=== PATIENT | male | born 1970 | race Caucasian/White ===

== ENCOUNTER 2019-10-04 10:36 | Inpatient (IN) | payer OTHER ==
[~2019-10-04] VITALS: Ht 177.8 cm; Wt 93.9 kg
[2019-10-04] MEDS ORDERED: KETOROLAC 30 MG/ML VIAL. IM ONE (11:30)
[2019-10-04] MEDS ORDERED: ORPHENADRINE CITRATE 60 MG/2 ML VIAL. IM ONE (11:30)
--- NOTE | 2019-10-04 11:59 | RAD ---
CT LUMBAR SPINE WO CONTRAST History:Reason: low back pain for over a month with R sciatica / Spl. Instructions: / History: Technique: Noncontrast CT was performed of the lumbar spine. Multiplanar reconstructions were performed. Exposure: One or more of the following individualized dose reduction techniques were utilized for this examination: 1. Automated exposure control 2. Adjustment of the mA and/or kV according to patient size 3. Use of iterative reconstruction technique. Comparison: None Findings: Grade 1 anterolisthesis L5 on S1 due to chronic bilateral L5 spondylolysis. Normal vertebral body height. No fracture. L4 superior endplate Schmorl's node. T12-L1: No canal or neuroforaminal narrowing. L1-L2: Small disc bulge. No canal or neuroforaminal narrowing. L2-L3 Broad-based disc bulge. Mild subarticular recess narrowing. Mild facet arthropathy. No canal narrowing. No neuroforaminal narrowing. L3-L4: Small disc bulge. Moderate facet arthropathy. Mild subarticular recess narrowing. No canal narrowing. Mild right and moderate left neuroforaminal narrowing. L4-L5: Disc bulge. Moderate facet arthropathy. No canal narrowing. Mild bilateral neuroforaminal narrowing. L5-S1: Anterolisthesis. Disc uncovering. Disc bulge. Abutment of the bilateral descending S1 nerve roots within the subarticular recess. No canal narrowing. Severe right neuroforaminal narrowing with impingement of the exiting right L5 nerve root. Mild left neuroforaminal narrowing. Left renal cyst. Impression: 1. Grade 1 anterolisthesis L5 on S1 due to chronic bilateral L5 spondylolysis. 2. Severe right L5-S1 neuroforaminal narrowing with impingement of the exiting L5 nerve root. Correlate for radiculopathy. 3. L5-S1 subarticular recess narrowing with abutment of the descending S1 nerve roots. Correlate for radiculopathy. 4. Additional lumbar spondylosis. Electronically signed by: Joseph Michele DO (10/04/2019 11:57 AM) [id number]
--- NOTE | 2019-10-04 12:09 | PHYS DOC ---
Past Medical History Past Medical History: Sciatica Past Surgical History: Other Additional Past Surgical Histo: LEFT ANKLE Smoking Status: Never Smoker Alcohol Use: Occasionally General Adult EDM: Chief Complaint: LOWER BACK PAIN OR INJURY HPI: HPI: Patient is a 49 year old male, accompanied by his , who presents to the emergency department with complaints of back pain for the last month. He states that in early August he felt his low back stiffen after lifting some heavy miles shingles. Patient denies any saddle anesthesia, or loss of bowel or bladder control. He denies any dysuria, hematuria, increased urinary frequency, abdominal pain, nausea, vomiting, or diarrhea. He reports that last week he was seen by his primary care provider who prescribed him a 9-day taper of prednisone, Flexeril, and Neurontin. He reports that his pain is increased over the last 48 hours, he is only comfortable when he is lying on his left side or he kneeling on all fours. He currently rates the pain a 5-6 out of 10 with rest, the pain increases to 8 or 9/10 with movement. He reports severe pain with weightbearing and ambulation, and states that the pain radiates down his right leg, his right leg feels a constant tingling sensation. Review of Systems: Review of Systems: Constitutional: Denies fever or chills. [] GI: Denies abdominal pain, nausea, vomiting, or diarrhea. [] : Denies dysuria. [] Musculoskeletal: See HPI Integument: Denies rash. [] Neurologic: Denies headache, see HPI Psychiatric: Denies depression or anxiety. [] Heart Score: Risk Factors: Risk Factors: DM, Current or recent (<one month) smoker, HTN, HLP, family history of CAD, obesity. Risk Scores: Score 0 - 3: 2.5% MACE over next 6 weeks - Discharge Home Score 4 - 6: 20.3% MACE over next 6 weeks - Admit for Clinical Observation Score 7 - 10: 72.7% MACE over next 6 weeks - Early Invasive Strategies Current Medications: Current Medications Medications (Trade) Dose Ordered Sig/Adan Start Time Stop Time Status Last Admin Dose Admin Ketorolac Tromethamine (Toradol 30mg Vial) 30 mg 1X ONCE 10/04/19 11:30 10/04/19 11:31 DC 10/04/19 11:45 30 MG Orphenadrine Citrate (Norflex) 60 mg 1X ONCE 10/04/19 11:30 10/04/19 11:31 DC 10/04/19 11:46 60 MG Allergies: Allergies: Allergies Coded Allergies Type Severity Reaction Last Updated Verified No Known Drug Allergies 10/04/19 No Physical Exam: PE: Constitutional: Well developed, well nourished, no acute distress, non-toxic appearance. [] HENT: Normocephalic, atraumatic, bilateral external ears normal, nose normal. [] Eyes: PERRLA, EOMI, conjunctiva normal, no discharge. [] Neck: Normal range of motion, no stridor. [] Cardiovascular:Heart rate regular rhythm Lungs & Thorax: Respirations even and unlabored, no retractions, no respiratory distress Back: No bony tenderness or deformity; right lumbar paraspinal tenderness to palpation, increased pain with right straight leg lift Skin: Warm, dry, no erythema, no rash. [] Extremities: No cyanosis, ROM intact, no edema. [] Neurologic: Alert and oriented X 3, no focal deficits noted. [] Psychologic: Affect normal, judgement normal, mood normal. [] Current Patient Data: Vital Signs: Vital Signs Date Time Temp Pulse Resp B/P (MAP) Pulse Ox O2 Delivery O2 Flow Rate FiO2 10/04/19 10:58 99.0 67 18 162/87 (112) 96 Room Air 99.0 EKG: EKG: [] Radiology/Procedures: Radiology/Procedures: PROCEDURE: CT LUMBAR SPINE WO CONTRAST CT LUMBAR SPINE WO CONTRAST History:Reason: low back pain for over a month with R sciatica / Spl. Instructions: / History: Technique: Noncontrast CT was performed of the lumbar spine. Multiplanar reconstructions were performed. Exposure: One or more of the following individualized dose reduction techniques were utilized for this examination: 1. Automated exposure control 2. Adjustment of the mA and/or kV according to patient size 3. Use of iterative reconstruction technique. Comparison: None Findings: Grade 1 anterolisthesis L5 on S1 due to chronic bilateral L5 spondylolysis. Normal vertebral body height. No fracture. L4 superior endplate Schmorl's node. T12-L1: No canal or neuroforaminal narrowing. L1-L2: Small disc bulge. No canal or neuroforaminal narrowing. L2-L3 Broad-based disc bulge. Mild subarticular recess narrowing. Mild facet arthropathy. No canal narrowing. No neuroforaminal narrowing. L3-L4: Small disc bulge. Moderate facet arthropathy. Mild subarticular recess narrowing. No canal narrowing. Mild right and moderate left neuroforaminal narrowing. L4-L5: Disc bulge. Moderate facet arthropathy. No canal narrowing. Mild bilateral neuroforaminal narrowing. L5-S1: Anterolisthesis. Disc uncovering. Disc bulge. Abutment of the bilateral descending S1 nerve roots within the subarticular recess. No canal narrowing. Severe right neuroforaminal narrowing with impingement of the exiting right L5 nerve root. Mild left neuroforaminal narrowing. Left renal cyst. Impression: 1. Grade 1 anterolisthesis L5 on S1 due to chronic bilateral L5 spondylolysis. 2. Severe right L5-S1 neuroforaminal narrowing with impingement of the exiting L5 nerve root. Correlate for radiculopathy. 3. L5-S1 subarticular recess narrowing with abutment of the descending S1 nerve roots. Correlate for radiculopathy. 4. Additional lumbar spondylosis. [] Course & Med Decision Making: Course & Med Decision Making Pertinent Labs and Imaging studies reviewed. (See chart for details) [id number] with Dr. Duran who is the admitting physician, and care was assumed following discussion of patient. Will admit for intractable back pain with compression of L5 nerve root Patient's vital signs stable. Patient remains afebrile, appears nontoxic, respirations even and unlabored. Patient will be admitted to the med/surg floor. Patient's case and plan of care also discussed with Dr. Cherry [] Anette Disclaimer: Anette Disclaimer: This electronic medical record was generated, in whole or in part, using a voice recognition dictation system. Departure Departure Impression: Primary Impression: Intractable low back pain Additional Impression: Lumbar nerve root impingement Disposition: ADMITTED INPATIENT Admitting Physician: MOR Akins) Condition: STABLE Referrals: NO PCP (PCP) Justicifation of Admission Dx: Justifications for Admission: Justification of Admission Dx: Yes Comments: intractable back pain ROSSANA BURGESS CASH SURRENDER CALCULATOR Oct 04, 2019 12:09
[2019-10-04] MEDS: DEXAMETHASONE SOD PHOS 4 MG/ML VIAL IVP SCH ×2 (12:30→17:31)
--- NOTE | 2019-10-04 12:36 | PDOC1 ---
History and Physical Date of Admission Date of Admission DATE: 10/04/19 TIME: 12:14 Identification/Chief Complaint Chief Complaint Intractable back pain, unable to walk Source Source: Patient History of Present Illness History of Present Illness Mr Kothari is a 49yo M w/ PMHx HTN who presents to ED today complaining of intractable back pain. Pain is 910. In his lower back, radiates down into his right leg with associated numbness and tingling. He is unable to bear weight on his right leg and his brought him to ED today because he is only able to crawl on all fours. 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 Initially went to chiropractor and had adjustments and spinal x-rays that were reviewed by the chiropractor is normal. He subsequently 2 weeks ago had a referral to a second chiropractor who is also a physical therapist in [place] and had traction and inversion table and felt minimal improvement so went to see his nurse practitioner and was given a 9-day prednisone taper along with Flexeril 10 mg 3 times daily as needed as well as Neurontin 300 mg 3 times daily, he has also been taking Motrin. And did feel some improvement with that and on the third day he went on a trip to [place] and did a little bit more heavy lifting and the pain recurred and has been progressively worse over the past 6 days until he was unable to walk today. On further review of systems he did have gastritis on EGD in 2019 and hypertension was on antihypertensives he has since lost over 25 pounds and is off antihypertensives and has been off of proton pump inhibitors and has been taking minimal Motrin. He does now have some epigastric pain. Labs pending. CT lumbar spine ordered and found with grade 1 anterior listhesis L5 on S1, severe right L5-S1 neuroforaminal narrowing with impingement of the exiting L5 nerve root, L5-S1 subarticular recess narrowing with abutment of the descending S1 nerve roots, lumbar spondylolysis. He was given Norflex and Toradol with some improvement, his best improvement is laying on his left side with his right leg in front of his left. He has no urinary or fecal incontinence. Called for admission for further care. Past Medical History Cardiovascular: HTN Past Surgical History Past Surgical History: Other (Left ankle ORIF with hardware in place) Family History Family History: Hypertension Social History Smoke: No ALCOHOL: rare Drugs: None Current Medications Current Medications Current Medications Orphenadrine Citrate (Norflex) 60 mg 1X ONCE IM Last administered on 10/04/19at 11:46; Start 10/04/19 at 11:30; Stop 10/04/19 at 11:31; Status DC Ketorolac Tromethamine (Toradol 30mg Vial) 30 mg 1X ONCE IM Last administered on 10/04/19at 11:45; Start 10/04/19 at 11:30; Stop 10/04/19 at 11:31; Status DC Allergies Allergies: Coded Allergies: No Known Drug Allergies (Unverified , 10/04/19) ROS General: YES: Fatigue, Malaise; No: Chills, Night Sweats, Appetite, Other PSYCHOLOGICAL ROS: No: Anxiety, Behavioral Disorder, Concentration difficultie, Decreased libido, Depression, Disorientation, Hallucinations, Hostility, Irritablity, Memory difficulties, Mood Swings, Obsessive thoughts, Physical abuse, Sexual abuse, Sleep disturbances, Suicidal ideation, Other Eyes: No Blurry vision, No Decreased vision, No Double vision, No Dry eyes, No Excessive tearing, No Eye Pain, No Itchy Eyes, No Loss of vision, No Photophobia, No Scotomata, No Uses contacts, No Uses glasses, No Other HEENT: No: Heacaches, Visual Changes, Hearing change, Nasal congestion, Nasal discharge, Oral lesions, Sinus pain, Sore Throat, Epistaxis, Sneezing, Snoring, Tinnitus, Vertigo, Vocal changes, Other ALLERGY AND IMMUNOLOGY: No: Hives, Insect Bite Sensitivity, Itchy/Watery Eyes, Nasal Congestion, Post Nasal Drip, Seasonal Allergies, Other Hematological and Lymphatic: No: Bleeding Problems, Blood Clots, Blood Transfusions, Brusing, Night Sweats, Pallor, Swollen Lymph Nodes, Other ENDOCRINE: No: Breast Changes, Galactorrhea, Hair Pattern Changes, Hot Flashes, Malaise/lethargy, Mood Swings, Palpitations, Polydipsia/polyuria, Skin Changes, Temperature Intolerance, Unexpected Weight Changes, Other Breast: No New/Changing Breast Lumps, No Nipple changes, No Nipple discharge, No Other Respiratory: No: Cough, Hemoptysis, Orthopnea, Pleuritic Pain, Shortness of breath, SOB with excertion, Sputum Changes, Stridor, Tachypnea, Wheezing, Other Cardiovascular: No Chest Pain, No Palpitations, No Orthopnea, No Paroxysmal Noc. Dyspnea, No Edema, No Lt Headedness, No Other Gastrointestinal: No Nausea, No Vomiting, No Abdominal Pain, No Diarrhea, No Constipation, No Melena, No Hematochezia, No Other Genitourinary: No Dysuria, No Frequency, No Incontinence, No Hematuria, No Retention, No Discharge, No Urgency, No Pain, No Flank Pain, No Other, No , No , No , No , No , No , No Musculoskeletal: Yes Gait Disturbance, Yes Muscle Pain, Yes Muscular Weakness; No Joint Pain, No Joint Stiffness, No Joint Swelling, No Pain In:, No Swelling In:, No Other Neurological: Yes Gait Disturbance, Yes Impaired Coord/balance, Yes Numbness/Tingling; No Behavorial Changes, No Bowel/Bladder ControlChng, No Confusion, No Dizziness, No Headaches, No Memory Loss, No Seizures, No Speech Problems, No Tremors, No Visual Changes, No Weakness, No Other Skin: No Dry Skin, No Eczema, No Hair Changes, No Lumps, No Mole Changes, No Mottling, No Nail Changes, No Pruritus, No Rash, No Skin Lesion Changes, No Other, No Acne Physical Exam General: Alert, Oriented X3, Cooperative, moderate distress HEENT: Atraumatic, PERRLA, EOMI, Mucous membr. moist/pink Lungs: Clear to auscultation, Normal air movement Heart: S1S2, RRR, no thrills, no rubs, no gallops, no murmurs Abdomen: Normal bowel sounds, Soft, No tenderness, No hepatosplenomegaly, No masses Male Genitals Exam: normal genitalia, normal prostate Extremities: No clubbing, No cyanosis, No edema, Normal pulses, Other (lower back tenderness) Skin: No rashes, No breakdown, No significant lesion Neuro: Normal speech, Strength at 5/5 X4 ext, Normal tone, Cranial nerves 3-12 NL, Reflexes 2+, Other (Decreased sensation in right leg) Psych/Mental Status: Mental status NL, Mood NL Vitals Vitals Vital Signs Date Time Temp Pulse Resp B/P (MAP) Pulse Ox O2 Delivery O2 Flow Rate FiO2 10/04/19 10:58 99.0 67 18 162/87 (112) 96 Room Air 99.0 Images Images Grade 1 anterolisthesis L5 on S1 due to chronic bilateral L5 spondylolysis. Normal vertebral body height. No fracture. L4 superior endplate Schmorl's node. T12-L1: No canal or neuroforaminal narrowing. L1-L2: Small disc bulge. No canal or neuroforaminal narrowing. L2-L3 Broad-based disc bulge. Mild subarticular recess narrowing. Mild facet arthropathy. No canal narrowing. No neuroforaminal narrowing. L3-L4: Small disc bulge. Moderate facet arthropathy. Mild subarticular recess narrowing. No canal narrowing. Mild right and moderate left neuroforaminal narrowing. L4-L5: Disc bulge. Moderate facet arthropathy. No canal narrowing. Mild bilateral neuroforaminal narrowing. L5-S1: Anterolisthesis. Disc uncovering. Disc bulge. Abutment of the bilateral descending S1 nerve roots within the subarticular recess. No canal narrowing. Severe right neuroforaminal narrowing with impingement of the exiting right L5 nerve root. Mild left neuroforaminal narrowing. Left renal cyst. Impression: 1. Grade 1 anterolisthesis L5 on S1 due to chronic bilateral L5 spondylolysis. 2. Severe right L5-S1 neuroforaminal narrowing with impingement of the exiting L5 nerve root. Correlate for radiculopathy. 3. L5-S1 subarticular recess narrowing with abutment of the descending S1 nerve roots. Correlate for radiculopathy. 4. Additional lumbar spondylosis. VTE Prophylaxis Ordered VTE Prophylaxis Devices: Yes VTE Pharmacological Prophylaxi: No Assessment/Plan Assessment/Plan A/P: Intractable back pain - admit for pain control due to lumbar radiculopathy. Bedrest for now Unable to walk - due to nerve root impingements Lumbar radiculopathy - with L5 and s1 impingements and numbness with some weakness, no loss of bowel or bladder, will consult neurosurgery and PMR. MRI indicated. Decadon, muscle relaxants HTN - after weight loss has been off meds. Will continue to monitor. Evidence shows starting antihypertensives for inpatient elevated BP is inappropriate Overweight - still working on weight loss Gastritis - will cont PPI while on steroids and NSAIDs FEN - General diet PPX - SCDs, low risk FULL CODE Dispo - inpatient Justicifation of Admission Dx: Justifications for Admission: Justification of Admission Dx: Yes MANOLO ROY MD Oct 04, 2019 12:36
[2019-10-04 13:15] VITALS: BP 137/81
[2019-10-04] MEDS ORDERED: DOCUSATE SODIUM 100 MG CAPSULE. PO PRN (13:45)
[2019-10-04] MEDS ORDERED: ONDANSETRON PF 4 MG/2 ML VIAL. IV PRN (13:45)
[2019-10-04] MEDS ORDERED: ACETAMINOPHEN 325 MG TABLET. PO PRN (13:45)
[2019-10-04] MEDS ORDERED: PANTOPRAZOLE 40 MG TABLET.DR. PO ONE (14:00)
[2019-10-04 14:01] VITALS: BP 142/93
[2019-10-04] MEDS: CYCLOBENZAPRINE 10 MG TABLET. PO PRN ×2 (14:16→21:10)
[2019-10-04] MEDS: MORPHINE SULFATE 2 MG/ML VIAL. IV PRN (14:16)
--- NOTE | 2019-10-04 14:49 | PDOC2 ---
CONSULT Date of Consult Date of Consult DATE: 10/04/19 TIME: 14:37 Reason for Consult Reason for Consult: back pain, right leg pain Identification/Chief Complaint Chief Complaint back pain and right leg pain Source Source: Patient History of Present Illness Reason for Visit: 49yo M presented to ED today with low back pain and right leg pain. The pain radiates down the posterolateral right leg to the ankle and large toe. It is up to 9/10 in severity. It is worse with movement. He is lying on his left side for improvement. This pain began about 5 weeks ago after lifting shingles. He went to chiropractor for treatment. He subsequently 2 weeks ago had a referral to a second chiropractor who is also a physical therapist and [place] and had traction and inversion table and felt minimal improvement so went to see his nurse practitioner and was given a 9-day prednisone taper along with Flexeril 10 mg 3 times daily as needed as well as Neurontin 300 mg 3 times daily, he has also been taking Motrin. There was initially some improvement but pain worsened after a recent trip to [place]. He was unable to bear weight today from pain and was brought to the ED by his . He denies obvious discrete focal weakness or bowel/bladder changes. Past Medical History Cardiovascular: HTN Past Surgical History Past Surgical History hip surgery Past Surgical History: Other (Left ankle ORIF with hardware in place) Family History Family History: Hypertension Social History No ALCOHOL: rare Drugs: None Current Problem List Problem List Problems Medical Problems: (1) Intractable low back pain Status: Acute (2) Lumbar nerve root impingement Status: Acute Current Medications Current Medications Current Medications Orphenadrine Citrate (Norflex) 60 mg 1X ONCE IM Last administered on 10/04/19at 11:46; Start 10/04/19 at 11:30; Stop 10/04/19 at 11:31; Status DC Ketorolac Tromethamine (Toradol 30mg Vial) 30 mg 1X ONCE IM Last administered on 10/04/19at 11:45; Start 10/04/19 at 11:30; Stop 10/04/19 at 11:31; Status DC Dexamethasone Sodium Phosphate (Decadron) 4 mg Q6HRS IVP Last administered on 10/04/19at 12:30; Start 10/04/19 at 12:30; Stop 10/05/19 at 06:01 Ondansetron HCl (Zofran) 4 mg PRN Q4HRS PRN IV NAUSEA/VOMITING; Start 10/04/19 at 13:45 Zolpidem Tartrate (Ambien) 5 mg PRN QHS PRN PO INSOMNIA; Start 10/04/19 at 13:45 Acetaminophen (Tylenol) 650 mg PRN Q4HRS PRN PO TEMP OVER 100.4F OR MILD PAIN; Start 10/04/19 at 13:45 Docusate Sodium (Colace) 100 mg PRN BID PRN PO HARD STOOLS; Start 10/04/19 at 13:45 Morphine Sulfate (Morphine Sulfate) 2 mg PRN Q4HRS PRN IV MODERATE TO SEVERE PAIN Last administered on 10/04/19at 14:16; Start 10/04/19 at 13:45 Pantoprazole Sodium (Protonix) 40 mg DAILYAC PO ; Start 10/05/19 at 07:30 Pantoprazole Sodium (Protonix) 40 mg 1X ONCE PO ; Start 10/04/19 at 14:00; Stop 10/04/19 at 14:01; Status DC Cyclobenzaprine HCl (Flexeril) 10 mg PRN Q6HRS PRN PO MUSCLE SPASMS Last administered on 10/04/19at 14:16; Start 10/04/19 at 14:00 Allergies Allergies: Coded Allergies: No Known Drug Allergies (Unverified , 10/04/19) Physical Exam General: Alert, Oriented X3, No acute distress HEENT: Atraumatic, PERRLA, EOMI Lungs: Other (nonlabored) Extremities: No clubbing, No cyanosis, No edema Skin: No breakdown, No significant lesion Neuro: Normal speech, Strength at 5/5 X4 ext, Sensation intact, Cranial nerves 3-12 NL, Other (decreased ROM right leg due to pain) Psych/Mental Status: Mental status NL Vitals VITALS Vital Signs Date Time Temp Pulse Resp B/P (MAP) Pulse Ox O2 Delivery O2 Flow Rate FiO2 10/04/19 14:16 Room Air 10/04/19 14:01 99.0 64 142/93 (109) 95 99.0 10/04/19 13:15 [address] shows spondylolysis with grade 1 spondylolisthesis L5-S1, right greater than left foraminal stenosis, neural elements and soft tissues not as well visualized on noncontrast CT study Assessment/Plan Assessment/Plan 49 yo M with low back and right leg pain with spondylolysis and spo ndylolisthesis L5-S1 on CT -will acquire lumbar MRI to further assess LOLA KING MD Oct 04, 2019 14:49
[2019-10-04 15:00] VITALS: BP_SYST 135; BP_SYST 142; BP_DIAS 83; BP_DIAS 93
[2019-10-04 15:38] LABS: BASO % 0 % (0-3); EOS % 1 % (0-3); HEMATOCRIT 46.2 % (39.0-53.0); HEMOGLOBIN 16.2 g/dL (13.0-17.5); LYMPH # 0.9 x10^3/uL (1.0-4.8); LYMPH % 11 % (24-48); MEAN CORPUSCULAR HEMOGLOBIN 32 pg (25-35); MEAN CORPUSCULAR HGB CONC 35 g/dL (31-37); MEAN CORPUSCULAR VOLUME 90 fL (79-100); MONO # 0.4 x10^3/uL (0.0-1.1); MONO % 5 % (0-9); NEUT # 6.4 x10^3/uL (1.8-7.7); NEUT % 83 % (31-73); PLATELET COUNT 173 x10^3/uL (140-400); RED BLOOD COUNT 5.12 x10^6/uL (4.30-5.70); RED CELL DISTRIBUTION WIDTH 13.6 % (11.5-14.5); WHITE BLOOD COUNT 7.8 x10^3/uL (4.0-11.0)
[2019-10-04 15:57] LABS: ALBUMIN 3.8 g/dL (3.4-5.0); ALBUMIN/GLOBULIN RATIO 1.2 (1.0-1.7); C-REACTIVE PROTEIN 0.7 mg/L (0-3.3); CALCIUM 8.7 mg/dL (8.5-10.1); CREATININE 1.1 mg/dL (0.7-1.3); GFR 71.8; POTASSIUM 3.9 mmol/L (3.5-5.1); TOTAL BILIRUBIN 1.8 mg/dL (0.2-1.0)
--- NOTE | 2019-10-04 16:57 | RAD ---
LUMBAR SPINE WO CONTRAST History: Reason: low back and right leg pain / Spl. Instructions: / History: Technique: Multiplanar, multi sequential MR imaging was performed of the lumbar spine. Comparison: CT October 04, 2019 Findings: Minimal grade 1 anterolisthesis L5 on S1 due to chronic bilateral L5 spondylolysis. Normal vertebral body height. No fracture. Conus terminates at the normal location. No evidence of nerve root clumping. L1-L2: Minimal disc bulge. No canal or neuroforaminal narrowing. L2-L3: Minimal disc bulge. No canal or neuroforaminal narrowing. L3-L4: Disc bulge. Mild facet arthropathy. Mild subarticular recess narrowing. No canal narrowing. Moderate left and mild right neuroforaminal narrowing. L4-L5: Disc bulge. Moderate facet arthropathy. No canal narrowing. No neuroforaminal narrowing. L5-S1: Anterolisthesis. Disc uncovering. Mild facet arthropathy. No canal narrowing. Moderate right neuroforaminal narrowing. No left neuroforaminal narrowing. Impression: 1. Grade 1 anterolisthesis L5 on S1 due to chronic bilateral L5 spondylolysis. 2. Moderate right L5-S1 neural foraminal narrowing with abutment of the exiting right L5 nerve root. Correlate for radiculopathy. 3. Additional lumbar spondylosis with moderate neuroforaminal narrowing left L3-L4. Electronically signed by: Joseph Michele DO (10/04/2019 4:54 PM) [id number]
[2019-10-04] MEDS: KETOROLAC 30 MG/ML VIAL. IVP PRN (17:31)
[2019-10-04 19:00] VITALS: BP 150/98
[2019-10-04] MEDS ORDERED: GABA300C18 PO (19:11)
[2019-10-04] MEDS ORDERED: CYCL10TA2 PO (19:11)
[2019-10-04] MEDS: ZOLPIDEM 5 MG TABLET. PO PRN ×2 (21:10→22:35)
[2019-10-04] MEDS: traMADol 50 MG TABLET PO PRN (22:35)
[2019-10-04 23:00] VITALS: BP 126/82
[2019-10-05] MEDS: DEXAMETHASONE SOD PHOS 4 MG/ML VIAL IVP SCH ×2 (00:18→05:58)
[2019-10-05 03:00] VITALS: BP 119/84
[2019-10-05] MEDS: KETOROLAC 30 MG/ML VIAL. IVP PRN ×2 (05:59→06:02)
[2019-10-05 07:00] VITALS: BP 138/88
[2019-10-05] MEDS: PANTOPRAZOLE 40 MG TABLET.DR. PO SCH ×2 (07:30→10:53)
[2019-10-05] MEDS: GABAPENTIN 300 MG CAPSULE. PO SCH ×3 (09:00→14:05)
--- NOTE | 2019-10-05 10:18 | NUR ---
Dr. Leary here to speak with pt/spouse, notified Dr. Pool on vacation at this time
--- NOTE | 2019-10-05 10:36 | CONS ---
DATE OF CONSULTATION: 10/05/2019 ATTENDING PHYSICIAN: Dr. Duran. REASON FOR CONSULTATION: The patient was seen at the request of Dr. Duran for rehab evaluation. HISTORY OF PRESENT ILLNESS: This is a 49-year-old male referred by occupation, admitted through the Emergency Room on 10/04/2019 with lower back pain with radiation to his right lower extremity with associated tingling and numbness and weakness. Initially started about 5-6 weeks ago after he picked up a pack of shingles. The patient had seen a chiropractor, also saw a second chiropractor and physical therapist, had traction and inversion table without much help. He even received 9-day course of prednisone, initially some help, but started having pain coming back while tapering. The patient is also taking Flexeril and Neurontin and Motrin. The patient had some worsening of the pain after a recent trip to the [place]. He is having difficulty to weightbear on his right lower extremity. He denies any trouble with his bowel or bladder control. PAST MEDICAL HISTORY: Includes hypertension, status post hip surgery, also left ankle ORIF. FAMILY HISTORY: History of hypertension. ALLERGIES: He is not known allergic to any medication. The patient had CT and MRI scan of his lumbar vertebrae done, which revealed multilevel disk bulge and facet degenerative joint disease with associated anterolisthesis of L5 on S1 and moderate right neural foraminal narrowing and also moderate left and mild right neural foraminal narrowing at L3-L4. PHYSICAL EXAMINATION: On physical examination today revealed, young male patient in no acute distress. He is alert and oriented to time, place, person and circumstance, follows commands appropriately, moves all 4 extremities voluntarily where he had 4+/5 grade muscle strength except only 3/5 grade muscle strength in right foot toe dorsiflexors. He had decreased touch and pinprick sensation over right L5-S1 dermatome area, more so of right S1. The patient had 2+ and symmetrical deep tendon reflexes and he had painful range of motion of all four extremity joints. Minimal tenderness to palpation over right sacroiliac joint area. Straight leg raising test is negative bilaterally. No lumbar paraspinal muscle spasm was noted at this time. ASSESSMENT: Young male with degenerative disk disease and degenerative joint disease of lumbar vertebrae with right L5-S1 radiculopathy. Continues with toe dorsiflexor weakness despite being on steroid Dosepak. RECOMMENDATIONS: To await neurosurgical advice. If no plans for surgery to let him be seen in the pain clinic for a trial of lumbar epidural steroid injections. I have reviewed with him a home program of physical modalities, relax, stretching exercises and proper body mechanics and avoid any activity that irritates his back. Dr. Duran, I appreciate asking me to participate in the care of this interesting patient. I will be glad to see him for followup with you on as needed basis. ERON QUICK MD DR: KELSI/floyd JOB#: [id number] / [id number]
--- NOTE | 2019-10-05 10:37 | PDOC ---
Progress Note: S: Feels better today. Leg pain reduced. Has been up to bathroom without problem. O: AF/VSS, NAD, strength and sensation stable, MRI reviewed A: 49M with lumbar radiculopathy, spondylolysis, spondylolisthesis L5-S1 P: Imaging findings and therapeutic options discussed with pt and family. Recommend conservative tx at this time including physical therapy and pain management assessment/treatment. May be completed outpatient basis if otherwise stable. If refractory or worsens, then surgical decompression which would likely require fusion may be of benefit. Contact information given. Continue to follow- up closely. Justicifation of Admission Dx: Justifications for Admission: Justification of Admission Dx: Yes LOLA KING MD Oct 05, 2019 10:37
[2019-10-05] MEDS: traMADol 50 MG TABLET PO PRN ×2 (10:53→16:06)
--- NOTE | 2019-10-05 10:56 | PDOC ---
PROGRESS NOTES History of Present Illness History of Present Illness VTE Prophylaxis Ordered VTE Prophylaxis Devices: Yes VTE Pharmacological Prophylaxi: No IMPRESSION Intractable back pain - admit for pain control due to lumbar radiculopathy. Bedrest for now STILL REQUIRING IV PAIN MEDS FOR CONTROL Unable to walk - due to nerve root impingements Lumbar radiculopathy - with L5 and s1 impingements and numbness with some weakness, no loss of bowel or bladder, will consult neurosurgery and PMR. MRI REVIEWED Decadon, muscle relaxants Moderate right L5-S1 neural foraminal narrowing with abutment of the exiting right L5 nerve root. C/W radiculopathy HTN - after weight loss has been off meds. Will continue to monitor. Evidence shows starting antihypertensives for inpatient elevated BP is inappropriate Overweight - still working on weight loss Gastritis - will cont PPI while on steroids and NSAIDs PLAN FEN - General diet PPX - SCDs, low risk FULL CODE Dispo - inpatient PT/OT OUT-PT EDB MAY BE HELPFUL D/W RN AND IN ROOM 29 MIN pt exam, chart review, > 50% of time spent with exam, chart review, pt care coordination Vitals Vitals Vital Signs Date Time Temp Pulse Resp B/P (MAP) Pulse Ox O2 Delivery O2 Flow Rate FiO2 10/05/19 07:00 97.9 66 18 138/88 (105) 95 Room Air 97.9 Physical Exam General: Alert, Oriented X3, No acute distress Abdomen: Normal bowel sounds, Soft, No tenderness, No hepatosplenomegaly, No masses Extremities: No clubbing, No cyanosis, No edema Skin: No breakdown, No significant lesion Labs LABS LUMBAR SPINE WO CONTRAST History: Reason: low back and right leg pain / Spl. Instructions: / History: Technique: Multiplanar, multi sequential MR imaging was performed of the lumbar spine. Comparison: CT October 04, 2019 Findings: Minimal grade 1 anterolisthesis L5 on S1 due to chronic bilateral L5 spondylolysis. Normal vertebral body height. No fracture. Conus terminates at the normal location. No evidence of nerve root clumping. L1-L2: Minimal disc bulge. No canal or neuroforaminal narrowing. L2-L3: Minimal disc bulge. No canal or neuroforaminal narrowing. L3-L4: Disc bulge. Mild facet arthropathy. Mild subarticular recess narrowing. No canal narrowing. Moderate left and mild right neuroforaminal narrowing. L4-L5: Disc bulge. Moderate facet arthropathy. No canal narrowing. No neuroforaminal narrowing. L5-S1: Anterolisthesis. Disc uncovering. Mild facet arthropathy. No canal narrowing. Moderate right neuroforaminal narrowing. No left neuroforaminal narrowing. Impression: 1. Grade 1 anterolisthesis L5 on S1 due to chronic bilateral L5 spondylolysis. 2. Moderate right L5-S1 neural foraminal narrowing with abutment of the exiting right L5 nerve root. Correlate for radiculopathy. 3. Additional lumbar spondylosis with moderate neuroforaminal narrowing left L3-L4. Electronically signed by: Joseph Michaels DO (10/04/2019 4:54 PM) [id number] DICTATED and SIGNED BY: JOSEPH MICHAELS DO DATE: 10/04/19 1654 Laboratory Tests Test 10/04/19 12:30 White Blood Count 7.8 x10^3/uL (4.0-11.0) Red Blood Count 5.12 x10^6/uL (4.30-5.70) Hemoglobin 16.2 g/dL (13.0-17.5) Hematocrit 46.2 % (39.0-53.0) Mean Corpuscular Volume 90 fL (79-100) Mean Corpuscular Hemoglobin 32 pg (25-35) Mean Corpuscular Hemoglobin Concent 35 g/dL (31-37) Red Cell Distribution Width 13.6 % (11.5-14.5) Platelet Count 173 x10^3/uL (140-400) Neutrophils (%) (Auto) 83 % (31-73) Lymphocytes (%) (Auto) 11 % (24-48) Monocytes (%) (Auto) 5 % (0-9) Eosinophils (%) (Auto) 1 % (0-3) Basophils (%) (Auto) 0 % (0-3) Neutrophils # (Auto) 6.4 x10^3/uL (1.8-7.7) Lymphocytes # (Auto) 0.9 x10^3/uL (1.0-4.8) Monocytes # (Auto) 0.4 x10^3/uL (0.0-1.1) Eosinophils # (Auto) 0.0 x10^3/uL (0.0-0.7) Basophils # (Auto) 0.0 x10^3/uL (0.0-0.2) Prothrombin Time 13.0 SEC (11.7-14.0) Prothromb Time International Ratio 1.0 (0.8-1.1) Sodium Level 139 mmol/L (136-145) Potassium Level 3.9 mmol/L (3.5-5.1) Chloride Level 103 mmol/L (98-107) Carbon Dioxide Level 29 mmol/L (21-32) Anion Gap 7 (6-14) Blood Urea Nitrogen 24 mg/dL (8-26) Creatinine 1.1 mg/dL (0.7-1.3) Estimated GFR (Cockcroft-Gault) 71.8 BUN/Creatinine Ratio 22 (6-20) Glucose Level 85 mg/dL (70-99) Calcium Level 8.7 mg/dL (8.5-10.1) Total Bilirubin 1.8 mg/dL (0.2-1.0) Aspartate Amino Transf (AST/SGOT) 29 U/L (15-37) Alanine Aminotransferase (ALT/SGPT) 48 U/L (16-63) Alkaline Phosphatase 54 U/L (46-116) C-Reactive Protein, Quantitative 0.7 mg/L (0-3.3) Total Protein 7.0 g/dL (6.4-8.2) Albumin 3.8 g/dL (3.4-5.0) Albumin/Globulin Ratio 1.2 (1.0-1.7) Assessment and Plan Assessmemt and Plan Problems Medical Problems: (1) Intractable low back pain Status: Acute (2) Lumbar nerve root impingement Status: Acute isit Type * On Hold Attempted Visit Details * Orders received and chart reviewed. PT spoke with RN, Valeria. Per RN, patient will possibly be going down for surgery this date. Will await neuro plan of care prior to initiating therapy evaluation. PT/ASSEMBLER PRODUCT * RED HighT Comment Review of Relevant I have reviewed the following items domi (where applicable) has been applied. Labs Laboratory Tests Test 10/04/19 12:30 White Blood Count 7.8 x10^3/uL (4.0-11.0) Red Blood Count 5.12 x10^6/uL (4.30-5.70) Hemoglobin 16.2 g/dL (13.0-17.5) Hematocrit 46.2 % (39.0-53.0) Mean Corpuscular Volume 90 fL (79-100) Mean Corpuscular Hemoglobin 32 pg (25-35) Mean Corpuscular Hemoglobin Concent 35 g/dL (31-37) Red Cell Distribution Width 13.6 % (11.5-14.5) Platelet Count 173 x10^3/uL (140-400) Neutrophils (%) (Auto) 83 % (31-73) Lymphocytes (%) (Auto) 11 % (24-48) Monocytes (%) (Auto) 5 % (0-9) Eosinophils (%) (Auto) 1 % (0-3) Basophils (%) (Auto) 0 % (0-3) Neutrophils # (Auto) 6.4 x10^3/uL (1.8-7.7) Lymphocytes # (Auto) 0.9 x10^3/uL (1.0-4.8) Monocytes # (Auto) 0.4 x10^3/uL (0.0-1.1) Eosinophils # (Auto) 0.0 x10^3/uL (0.0-0.7) Basophils # (Auto) 0.0 x10^3/uL (0.0-0.2) Prothrombin Time 13.0 SEC (11.7-14.0) Prothromb Time International Ratio 1.0 (0.8-1.1) Sodium Level 139 mmol/L (136-145) Potassium Level 3.9 mmol/L (3.5-5.1) Chloride Level 103 mmol/L (98-107) Carbon Dioxide Level 29 mmol/L (21-32) Anion Gap 7 (6-14) Blood Urea Nitrogen 24 mg/dL (8-26) Creatinine 1.1 mg/dL (0.7-1.3) Estimated GFR (Cockcroft-Gault) 71.8 BUN/Creatinine Ratio 22 (6-20) Glucose Level 85 mg/dL (70-99) Calcium Level 8.7 mg/dL (8.5-10.1) Total Bilirubin 1.8 mg/dL (0.2-1.0) Aspartate Amino Transf (AST/SGOT) 29 U/L (15-37) Alanine Aminotransferase (ALT/SGPT) 48 U/L (16-63) Alkaline Phosphatase 54 U/L (46-116) C-Reactive Protein, Quantitative 0.7 mg/L (0-3.3) Total Protein 7.0 g/dL (6.4-8.2) Albumin 3.8 g/dL (3.4-5.0) Albumin/Globulin Ratio 1.2 (1.0-1.7) Laboratory Tests Test 10/04/19 12:30 White Blood Count 7.8 x10^3/uL (4.0-11.0) Red Blood Count 5.12 x10^6/uL (4.30-5.70) Hemoglobin 16.2 g/dL (13.0-17.5) Hematocrit 46.2 % (39.0-53.0) Mean Corpuscular Volume 90 fL (79-100) Mean Corpuscular Hemoglobin 32 pg (25-35) Mean Corpuscular Hemoglobin Concent 35 g/dL (31-37) Red Cell Distribution Width 13.6 % (11.5-14.5) Platelet Count 173 x10^3/uL (140-400) Neutrophils (%) (Auto) 83 % (31-73) Lymphocytes (%) (Auto) 11 % (24-48) Monocytes (%) (Auto) 5 % (0-9) Eosinophils (%) (Auto) 1 % (0-3) Basophils (%) (Auto) 0 % (0-3) Neutrophils # (Auto) 6.4 x10^3/uL (1.8-7.7) Lymphocytes # (Auto) 0.9 x10^3/uL (1.0-4.8) Monocytes # (Auto) 0.4 x10^3/uL (0.0-1.1) Eosinophils # (Auto) 0.0 x10^3/uL (0.0-0.7) Basophils # (Auto) 0.0 x10^3/uL (0.0-0.2) Prothrombin Time 13.0 SEC (11.7-14.0) Prothromb Time International Ratio 1.0 (0.8-1.1) Sodium Level 139 mmol/L (136-145) Potassium Level 3.9 mmol/L (3.5-5.1) Chloride Level 103 mmol/L (98-107) Carbon Dioxide Level 29 mmol/L (21-32) Anion Gap 7 (6-14) Blood Urea Nitrogen 24 mg/dL (8-26) Creatinine 1.1 mg/dL (0.7-1.3) Estimated GFR (Cockcroft-Gault) 71.8 BUN/Creatinine Ratio 22 (6-20) Glucose Level 85 mg/dL (70-99) Calcium Level 8.7 mg/dL (8.5-10.1) Total Bilirubin 1.8 mg/dL (0.2-1.0) Aspartate Amino Transf (AST/SGOT) 29 U/L (15-37) Alanine Aminotransferase (ALT/SGPT) 48 U/L (16-63) Alkaline Phosphatase 54 U/L (46-116) C-Reactive Protein, Quantitative 0.7 mg/L (0-3.3) Total Protein 7.0 g/dL (6.4-8.2) Albumin 3.8 g/dL (3.4-5.0) Albumin/Globulin Ratio 1.2 (1.0-1.7) Medications Current Medications Orphenadrine Citrate (Norflex) 60 mg 1X ONCE IM Last administered on 10/04/19at 11:46; Start 10/04/19 at 11:30; Stop 10/04/19 at 11:31; Status DC Ketorolac Tromethamine (Toradol 30mg Vial) 30 mg 1X ONCE IM Last administered on 10/04/19at 11:45; Start 10/04/19 at 11:30; Stop 10/04/19 at 11:31; Status DC Dexamethasone Sodium Phosphate (Decadron) 4 mg Q6HRS IVP Last administered on 10/05/19at 05:58; Start 10/04/19 at 12:30; Stop 10/05/19 at 06:01; Status DC Ondansetron HCl (Zofran) 4 mg PRN Q4HRS PRN IV NAUSEA/VOMITING; Start 10/04/19 at 13:45 Zolpidem Tartrate (Ambien) 5 mg PRN QHS PRN PO INSOMNIA Last administered on 10/04/19at 22:35; Start 10/04/19 at 13:45 Acetaminophen (Tylenol) 650 mg PRN Q4HRS PRN PO TEMP OVER 100.4F OR MILD PAIN; Start 10/04/19 at 13:45 Docusate Sodium (Colace) 100 mg PRN BID PRN PO HARD STOOLS; Start 10/04/19 at 13:45 Morphine Sulfate (Morphine Sulfate) 2 mg PRN Q4HRS PRN IV MODERATE TO SEVERE PAIN Last administered on 10/04/19at 14:16; Start 10/04/19 at 13:45 Pantoprazole Sodium (Protonix) 40 mg DAILYAC PO ; Start 10/05/19 at 07:30 Pantoprazole Sodium (Protonix) 40 mg 1X ONCE PO ; Start 10/04/19 at 14:00; Stop 10/04/19 at 14:01; Status DC Cyclobenzaprine HCl (Flexeril) 10 mg PRN Q6HRS PRN PO MUSCLE SPASMS Last administered on 10/04/19at 21:10; Start 10/04/19 at 14:00 Ketorolac Tromethamine (Toradol 30mg Vial) 30 mg PRN Q6HRS PRN IVP MODERATE PAIN Last administered on 10/05/19at 06:02; Start 10/04/19 at 15:30; Stop 10/09/19 at 15:29 Tramadol HCl (Ultram) 50 mg PRN Q6HRS PRN PO MILD TO MODERATE PAIN Last administered on 10/04/19at 22:35; Start 10/04/19 at 15:30 Gabapentin (Neurontin) 300 mg TID PO ; Start 10/05/19 at 09:00 Active Scripts Active Reported Gabapentin (Gabapentin) 300 Mg Capsule 300 Mg PO TID Cyclobenzaprine Hcl 10 Mg Tablet 1 Tab PO PRN TID PRN Vitals/I & O Vital Sign - Last 24 Hours 10/04/19 10/04/19 10/04/19 10/04/19 10:58 11:43 13:15 14:01 Temp 99.0 98.3 99.0 99.0 98.3 99.0 Pulse 67 64 61 64 Resp 18 20 B/P (MAP) 162/87 (112) 142/93 (109) 137/81 (99) 142/93 (109) Pulse Ox 96 95 99 95 O2 Delivery Room Air Room Air Room Air 10/04/19 10/04/19 10/04/19 10/04/19 14:16 14:46 15:00 15:00 Temp 99.0 97.9 99.0 97.9 Pulse 64 55 Resp 20 B/P (MAP) 142/93 (109) 135/83 (100) Pulse Ox 95 99 O2 Delivery Room Air Room Air Room Air 10/04/19 10/04/19 10/04/19 10/04/19 15:14 19:00 22:35 23:00 Temp 98.0 97.8 98.0 97.8 Pulse 96 83 Resp 18 20 18 B/P (MAP) 150/98 (115) 126/82 (97) Pulse Ox 96 93 O2 Delivery Room Air Room Air Room Air Room Air 10/05/19 10/05/19 10/05/19 03:00 04:42 07:00 Temp 98.2 97.9 98.2 97.9 Pulse 73 66 Resp 18 18 18 B/P (MAP) 119/84 (96) 138/88 (105) Pulse Ox 97 95 O2 Delivery Room Air Room Air Room Air Intake and Output 10/04/19 10/04/19 10/05/19 14:59 22:59 06:59 Intake Total 600 ml Output Total 0 ml Balance 600 ml 0 ml Justicifation of Admission Dx: Justifications for Admission: Justification of Admission Dx: Yes LYDIA ANDERSON MD Oct 05, 2019 10:56
[2019-10-05 11:00] VITALS: BP 133/92
[2019-10-05] MEDS: MORPHINE SULFATE 2 MG/ML VIAL. IV PRN (12:10)
[2019-10-05 15:00] VITALS: BP 139/85
--- NOTE | 2019-10-05 15:30 | NUR ---
SW following. Spoke with RN and CM. Reviewed chart. SW spoke with pt and his . Pt resides in [place] with his who is an RN for [employer]. Pt plans to return home on room air and oral medications when stable. Pt to have out-patient PT/OT on discharge. SW coordinated care with therapy department and requested out-patient script from Dr. Jaffe. No additional SW needs per pt and .
[2019-10-05] MEDS: CYCLOBENZAPRINE 10 MG TABLET. PO PRN (17:34)
--- NOTE | 2019-10-05 17:52 | NUR ---
Discharged to home per w/c accompanied by spouse, see instruction sheet for details, belongings taken with him
--- NOTE | 2019-10-05 18:00 | PDOC3 ---
Discharge Summary Date of Admission: Oct 04, 2019 Date of Discharge: Oct 05, 2019 Follow-Up: 1-2 days Admitting Diagnosis comment: DISCHARGE DX Intractable back pain - admit for pain control due to lumbar radiculopathy. Bedrest for now STILL REQUIRING IV PAIN MEDS FOR CONTROL, IMPROVED THIS EVENING 6 PM Unable to walk - due to nerve root impingements Lumbar radiculopathy - with L5 and s1 impingements and numbness with some weakness, no loss of bowel or bladder, will consult neurosurgery and PMR. MRI REVIEWED Decadon, muscle relaxants Moderate right L5-S1 neural foraminal narrowing with abutment of the exiting right L5 nerve root. C/W radiculopathy HTN - after weight loss has been off meds. Will continue to monitor. Evidence shows starting antihypertensives for inpatient elevated BP is inappropriate Overweight - still working on weight loss Gastritis - will cont PPI while on steroids and NSAIDs PLAN FEN - General diet PPX - SCDs, low risk FULL CODE Dispo - inpatient PT/OT OUT-PT EDB MAY BE HELPFUL D/W RN AND IN ROOM 29 MIN pt exam, chart review, d/c planning > 50% of time spent with exam, chart review, pt care coordination to see DR LA POTTER FOR EDB Vitals Vitals Vital Signs Date Time Temp Pulse Resp B/P (MAP) Pulse Ox O2 Delivery O2 Flow Rate FiO2 10/05/19 07:00 97.9 66 18 138/88 (105) 95 Room Air 97.9 Physical Exam General: Alert, Oriented X3, No acute distress Abdomen: Normal bowel sounds, Soft, No tenderness, No hepatosplenomegaly, No masses Extremities: No clubbing, No cyanosis, No edema Skin: No breakdown, No significant lesion Labs LABS LUMBAR SPINE WO CONTRAST History: Reason: low back and right leg pain / Spl. Instructions: / History: Technique: Multiplanar, multi sequential MR imaging was performed of the lumbar spine. Comparison: CT October 04, 2019 Findings: Minimal grade 1 anterolisthesis L5 on S1 due to chronic bilateral L5 spondylolysis. Normal vertebral body height. No fracture. Conus terminates at the normal location. No evidence of nerve root clumping. L1-L2: Minimal disc bulge. No canal or neuroforaminal narrowing. L2-L3: Minimal disc bulge. No canal or neuroforaminal narrowing. L3-L4: Disc bulge. Mild facet arthropathy. Mild subarticular recess narrowing. No canal narrowing. Moderate left and mild right neuroforaminal narrowing. L4-L5: Disc bulge. Moderate facet arthropathy. No canal narrowing. No neuroforaminal narrowing. L5-S1: Anterolisthesis. Disc uncovering. Mild facet arthropathy. No canal narrowing. Moderate right neuroforaminal narrowing. No left neuroforaminal narrowing. Impression: 1. Grade 1 anterolisthesis L5 on S1 due to chronic bilateral L5 spondylolysis. 2. Moderate right L5-S1 neural foraminal narrowing with abutment of the exiting right L5 nerve root. Correlate for radiculopathy. 3. Additional lumbar spondylosis with moderate neuroforaminal narrowing left L3-L4. Electronically signed by: Marlys Michaels DO (10/04/2019 4:54 PM) [id number] DICTATED and SIGNED BY: MARLYS MICHAELS DO FINAL DIAGNOSIS Problems Medical Problems: (1) Intractable low back pain Status: Acute (2) Lumbar nerve root impingement Status: Acute Brief Hospital Course Mr. Lui is a 49 old [sex] who presented with [ SCIATICA WITH INTRACTABLE PAIN] CONDITION AT DISCHARGE: Improved Discharge Medications Current Medications Orphenadrine Citrate (Norflex) 60 mg 1X ONCE IM Last administered on 10/04/19at 11:46; Start 10/04/19 at 11:30; Stop 10/04/19 at 11:31; Status DC Ketorolac Tromethamine (Toradol 30mg Vial) 30 mg 1X ONCE IM Last administered on 10/04/19at 11:45; Start 10/04/19 at 11:30; Stop 10/04/19 at 11:31; Status DC Dexamethasone Sodium Phosphate (Decadron) 4 mg Q6HRS IVP Last administered on 10/05/19at 05:58; Start 10/04/19 at 12:30; Stop 10/05/19 at 06:01; Status DC Ondansetron HCl (Zofran) 4 mg PRN Q4HRS PRN IV NAUSEA/VOMITING; Start 10/04/19 a t 13:45; Stop 10/05/19 at 17:54; Status DC Zolpidem Tartrate (Ambien) 5 mg PRN QHS PRN PO INSOMNIA Last administered on 10/04/19at 22:35; Start 10/04/19 at 13:45; Stop 10/05/19 at 17:54; Status DC Acetaminophen (Tylenol) 650 mg PRN Q4HRS PRN PO TEMP OVER 100.4F OR MILD PAIN; Start 10/04/19 at 13:45; Stop 10/05/19 at 17:54; Status DC Docusate Sodium (Colace) 100 mg PRN BID PRN PO HARD STOOLS; Start 10/04/19 at 13:45; Stop 10/05/19 at 17:54; Status DC Morphine Sulfate (Morphine Sulfate) 2 mg PRN Q4HRS PRN IV SEVERE PAIN Last administered on 10/05/19at 12:10; Start 10/04/19 at 13:45; Stop 10/05/19 at 17:54; Status DC Pantoprazole Sodium (Protonix) 40 mg DAILYAC PO Last administered on 10/05/19at 10:53; Start 10/05/19 at 07:30; Stop 10/05/19 at 17:54; Status DC Pantoprazole Sodium (Protonix) 40 mg 1X ONCE PO ; Start 10/04/19 at 14:00; Stop 10/04/19 at 14:01; Status DC Cyclobenzaprine HCl (Flexeril) 10 mg PRN Q6HRS PRN PO MUSCLE SPASMS Last administered on 10/05/19at 17:34; Start 10/04/19 at 14:00; Stop 10/05/19 at 17:54; Status DC Ketorolac Tromethamine (Toradol 30mg Vial) 30 mg PRN Q6HRS PRN IVP MODERATE PAIN Last administered on 10/05/19at 06:02; Start 10/04/19 at 15:30; Stop 10/05/19 at 17:54; Status DC Tramadol HCl (Ultram) 50 mg PRN Q6HRS PRN PO MILD TO MODERATE PAIN Last administered on 10/05/19at 16:06; Start 10/04/19 at 15:30; Stop 10/05/19 at 17:54; Status DC Gabapentin (Neurontin) 300 mg TID PO Last administered on 10/05/19at 14:05; Start 10/05/19 at 09:00; Stop 10/05/19 at 17:54; Status DC Active Scripts Active Reported Gabapentin (Gabapentin) 300 Mg Capsule 300 Mg PO TID Cyclobenzaprine Hcl 10 Mg Tablet 1 Tab PO PRN TID PRN Vital Signs Vital Signs Date Time Temp Pulse Resp B/P (MAP) Pulse Ox O2 Delivery O2 Flow Rate FiO2 10/05/19 16:06 Room Air 10/05/19 15:00 98.3 77 18 139/85 (103) 92 98.3 Labs Laboratory Tests Test 10/04/19 12:30 10/04/19 16:45 White Blood Count 7.8 x10^3/uL (4.0-11.0) Red Blood Count 5.12 x10^6/uL (4.30-5.70) Hemoglobin 16.2 g/dL (13.0-17.5) Hematocrit 46.2 % (39.0-53.0) Mean Corpuscular Volume 90 fL (79-100) Mean Corpuscular Hemoglobin 32 pg (25-35) Mean Corpuscular Hemoglobin Concent 35 g/dL (31-37) Red Cell Distribution Width 13.6 % (11.5-14.5) Platelet Count 173 x10^3/uL (140-400) Neutrophils (%) (Auto) 83 % (31-73) Lymphocytes (%) (Auto) 11 % (24-48) Monocytes (%) (Auto) 5 % (0-9) Eosinophils (%) (Auto) 1 % (0-3) Basophils (%) (Auto) 0 % (0-3) Neutrophils # (Auto) 6.4 x10^3/uL (1.8-7.7) Lymphocytes # (Auto) 0.9 x10^3/uL (1.0-4.8) Monocytes # (Auto) 0.4 x10^3/uL (0.0-1.1) Eosinophils # (Auto) 0.0 x10^3/uL (0.0-0.7) Basophils # (Auto) 0.0 x10^3/uL (0.0-0.2) Prothrombin Time 13.0 SEC (11.7-14.0) Prothromb Time International Ratio 1.0 (0.8-1.1) Sodium Level 139 mmol/L (136-145) Potassium Level 3.9 mmol/L (3.5-5.1) Chloride Level 103 mmol/L (98-107) Carbon Dioxide Level 29 mmol/L (21-32) Anion Gap 7 (6-14) Blood Urea Nitrogen 24 mg/dL (8-26) Creatinine 1.1 mg/dL (0.7-1.3) Estimated GFR (Cockcroft-Gault) 71.8 BUN/Creatinine Ratio 22 (6-20) Glucose Level 85 mg/dL (70-99) Calcium Level 8.7 mg/dL (8.5-10.1) Total Bilirubin 1.8 mg/dL (0.2-1.0) Aspartate Amino Transf (AST/SGOT) 29 U/L (15-37) Alanine Aminotransferase (ALT/SGPT) 48 U/L (16-63) Alkaline Phosphatase 54 U/L (46-116) C-Reactive Protein, Quantitative 0.7 mg/L (0-3.3) Total Protein 7.0 g/dL (6.4-8.2) Albumin 3.8 g/dL (3.4-5.0) Albumin/Globulin Ratio 1.2 (1.0-1.7) Coronavirus (COVID-19)(PCR) Negative (NEGATIVE) Allergies Allergies Coded Allergies Type Severity Reaction Last Updated Verified No Known Drug Allergies 10/04/19 No Disposition/Orders: D/C to Home Justicifation of Admission Dx: Justifications for Admission: Justification of Admission Dx: Yes LYDIA ANDERSON MD Oct 05, 2019 18:00
--- NOTE | 2019-10-05 18:01 | DISCH ---
DISCHARGE INSTRUCTIONS Condition on Discharge Condition on Discharge: Stable Activity After Discharge Activity Instructions for Disc: Activity as tolerated Lifting Instructions after Dis: No heavy lifting, No pulling or pushing, Do not lift >10 pounds Driving Instructions after Dis: Do not drive Weight Bearing Status after Di: As tolerated Diet after Discharge Diet after Discharge: Regular Wound Incision Care Wound/Incision Care: Ice to area for comfort Community/Resources/Services Services at Discharge: Outpatient Therapy Contacting the [facility] after DC Call your doctor for: If your condition worsens Follow-Up Follow up with: Dr. Terr[facility] [phone] Follow Up With: Dr. Francois Leary [phone] Treatment/Equipment after DC Adaptive Equipment Issued: LYDIA Jaeger MD Oct 05, 2019 18:01
[2019-10-05] MEDS ORDERED: TRAM50TA PO ×2 (18:04→19:21)
--- NOTE | 2019-10-05 19:10 | NUR ---
Pt called back no prescription available to him at [facility], message sent to Dr. Fabian, Dr. Duran now sales contract administrator, will call patient and make them aware of situation, called pt back at [phone] made aware of situation through message, rec'd call from Dr. Duran scripts sent to pharmacy for PPI, Medrol dose pack & pain med, attempted to call pt/spouse back, left message. Addendum: 10/05/19 at 1932 by KELLEE BUSCH RN Confirmed medication script was sent & rec'd at [facility] pharmacy
[2019-10-05] MEDS ORDERED: PANT40TA77 PO (19:21)
[2019-10-05] MEDS ORDERED: METH4TAB2 PO (19:21)
== END 2019-10-05 17:54 | disposition home or self-care (01) | DRG 552 ==
LOC: ER 10:36 → 4 NORTH 12:04
PROVIDERS: ADMIT Internal Medicine; ATTEND Internal Medicine
DX: M43.07 Spondylolysis, lumbosacral region (principal); K29.70 Gastritis, unspecified, without bleeding; E66.3 Overweight; Z20.828 Contact with and (suspected) exposure to other viral communicable diseases; I10 Essential (primary) hypertension; M54.17 Radiculopathy, lumbosacral region; Z82.49 Family history of ischemic heart disease and other diseases of the circulatory system; Z68.29 Body mass index [BMI] 29.0-29.9, adult
CPT/HCPCS: 36415; 72131; 72148; 80053; 85025; 85610; 86140; 96372; 99285; J1100; J1885; J2270; J2360; G0378; U0003-CS

== ENCOUNTER → 2019-10-13 | Outpatient (CLI) | payer OTHER ==
[2019-10-05 15:00] VITALS: BP 139/85
[~2019-10-13] MED LIST: CYCL10TA2 PO; GABA300C18 PO; IOHEXOL 180 MG/ML 10 ML VIAL. ONE; METH4TAB2 PO; PANT40TA77 PO; TRAM50TA PO; methylPREDNISolone ACETATE 40 MG/ML VIAL. ONE; methylPREDNISolone ACETATE 80 MG/ML VIAL. ONE
--- NOTE | 2019-10-13 13:19 | PAIN ---
DATE OF SERVICE: 10/13/2019 INITIAL CONSULTATION FOR PAIN CLINIC CHIEF COMPLAINT: Low back and right lower extremity pain. HISTORY OF PRESENT ILLNESS: This is a 49-year-old male, who presents with history of pain in low back and right lower extremity for about a month or so now. The patient reports that in early August, this began to hurt. He has had pain in the back for many years, but never radiating to the lower extremities. He was picking up a bundle of shingles and when he picks up, he twisted to his right side and felt immediate pain in the low back and into the right leg with an electrical sensation. Since that time, the pain has been on and off, but it has been getting worse to the point where about a week ago, he was unable to weightbear on his right leg and went to local Emergency Department, which gave him steroid medications, both intermuscular and pain medicine, also oral steroids to go home. He has finished the Medrol Dosepak, which did help by about 30%, but the pain returned at the end of the taper schedule on the Dosepak. The patient reports now the pain is tingling with numbness radiating to the right lower extremity, posterior gluteus, posterior lateral thigh, posterior calf, posterior foot, and inferior aspect of the arch of the foot and the great toe on the right side. The patient did have a CT scan of the lumbar spine showing a small disk bulge at L3-L4 with disk bulge at L4-L5 and L5-S1 shows severe right neural foraminal narrowing with impingement of the exiting right L5 nerve root with disk bulge as well. The patient rates his disability from 0-10, 10 being the worst, and is a 3 with family home responsibilities and social activity, 4 with recreation, occupation and sexual behavior and self-care and 1 with life support activities. The patient reports no loss of motor function, but significant fatigability of the right lower extremity with activity and especially walking, standing, changing positions, better with sitting or lying down, but the patient reports it can awaken him from sleep; not most nights. The patient reports it does not affect his bowel or bladder control, but does affect his ability to walk with fatigability in the right leg. The patient has had physical therapy since September, chiropractic treatment as well as exercising, both of which help, but only to a very mild extent. He tried prednisone, tramadol, gabapentin as well as cyclobenzaprine, all of which decreased the pain while he was taking it, but only for a short period of time and only by about 20-50%. PAST MEDICAL HISTORY: Significant for hypertension, recent weight loss; the patient with dieting. Otherwise, the patient is in very good health. PREVIOUS SURGERIES: Include tonsillectomy at age 7 and ORIF of the left ankle in 2013. CURRENT MEDICATIONS: Include cyclobenzaprine, tramadol, and gabapentin. ALLERGIES: The patient has no known drug allergies. FAMILY HISTORY: Significant for no major medical problems or conditions. SOCIAL HISTORY: The patient drinks alcohol 1-2 drinks a day. Does not smoke. Does not use any illegal, illicit, or recreational drugs. He is , lives with his spouse. Lives locally in [place], [place]. Has a [employer]. REVIEW OF SYSTEMS: The patient's review of systems is positive for those items mentioned in history of present illness. All systems reviewed and otherwise negative. It is complete, full and well documented on the patient's chart. PHYSICAL EXAMINATION: VITAL SIGNS: The patient's blood pressure 140/95, pulse 66, respirations 16, temperature is 98.0 degrees Fahrenheit, height is 5 feet 10 inches, weight is 208 pounds. GENERAL: The patient is awake, alert, oriented, appropriate, has very pleasant demeanor. HEENT: Shows normocephalic, atraumatic. Extraocular movements are intact and symmetrical. Oral cavity: Mucous membranes moist and pink. Dentition is intact. NECK: Shows anterior throat supple without palpable lymphadenopathy noted. Swallow reflex symmetrical. CHEST: Shows normal on inspection. Breath sounds are clear to auscultation bilaterally. No rales, rhonchi, or wheezes auscultated. HEART: Shows S1, S2 clear. No murmurs auscultated. ABDOMEN: Soft, nontender, nondistended. BACK: Shows spine grossly in the midline, normal-appearing cervical lordotic curvature, thoracic kyphotic curvature and lumbar lordotic curvature. Lumbar paraspinous muscle shows symmetrical on inspection, with palpation shows some moderate tenderness diffusely bilaterally, but only diffusely without significant radiation. The patient has good rotational motion of lumbar spine, both laterally as well as extension and flexion greater than 10 degrees, forward flexion 45 degrees with some mild pain with extension, but only on the right side and only very mild. The patient has no tenderness over the spinous processes, sacrum, or sacroiliac regions. At the posterior superior iliac spine on the right is mildly tender with deep palpation, but the left is not. EXTREMITIES: The patient's lower extremities show deep tendon reflexes 2+ in the patellar, 1+ tendo-calcaneus tendons are equal. Motor exam is strong with approximately 4 on a scale of 5 dorsiflexion, extension on the right, 5/5 on the left. Quadriceps and hamstring flexion are 5/5 and equal bilaterally. Peripheral pulses are 1+ posterior tibia. No peripheral edema is noted bilaterally. The patient's straight leg raising noted to be negative for reproduction of radicular symptoms. Gaenslen and Todd maneuver are negative bilaterally also. The patient is able to stand, stand on his toes without difficulty or loss of balance, walks with a normal-appearing gait for a short distance in the office today. He does not appear to favor the right lower extremity significantly with ambulating, not use any assistive devices to ambulate. SKIN: Shows warm and dry, good turgor. No edema. No sores, rashes, or bruising throughout. IMPRESSION: 1. This is a 49-year-old male with recent history of pain in low back, right lower extremity after lifting and twisting heavy objects while working with significant radicular pain in the right lower extremity. 2. CT scan of lumbar spine as noted. 3. Hypertension. PLAN: Options were discussed with the patient, including conservative medical managements, physical therapies, and interventional techniques. He would like to pursue interventional techniques. We discussed a lumbar epidural steroid injection using description as well as anatomical models to describe the procedure. Risks were then discussed, including but not limited to bleeding, infection, possibility of epidural hematoma, subsequent neurological compromise, dural puncture, headaches, spinal cord and/or nerve damage, side effects of steroid medication and poor results regarding pain control. The patient understands and wished to proceed. The patient will return to clinic in approximately 2 weeks for followup. He was counseled on return appointment, activity level, and side effects to be aware of. DIAGNOSES: Lumbar radiculopathy with lumbar degenerative disk disease. PROCEDURE: Lumbar epidural steroid injection, translaminar approach at the L5-S1 level using C-arm fluoroscopic guidance under sterile prep and drape using local anesthetic. MEDICATION INJECTED: A total of 120 mg Depo-Medrol plus 10 mL of preservative-free normal saline and 2 mL of contrast. CONDITION AT DISCHARGE: Stable. The patient tolerated procedure well, had no complications. ROBBY TOVAR MD DR: KATHRYN/floyd JOB#: [id number] / [id number]
== END | disposition home or self-care (01) ==
LOC: PNCL 11:11
PROVIDERS: ATTEND Anesthesiology
DX: M51.16 Intervertebral disc disorders with radiculopathy, lumbar region (principal); I10 Essential (primary) hypertension; M79.661 Pain in right lower leg; Z79.899 Other long term (current) drug therapy
CPT/HCPCS: 62323; J1030; J1040; Q9965

== ENCOUNTER → 2019-10-27 | Outpatient (CLI) | payer OTHER ==
[2019-10-05 15:00] VITALS: BP 139/85
--- NOTE | 2019-10-27 10:42 | PAIN ---
DATE OF SERVICE: 10/27/2019 PROGRESS NOTE FOR PAIN CLINIC DIAGNOSIS: Lumbar radiculopathy with lumbar degenerative disk disease. HISTORY OF PRESENT ILLNESS: The patient is a 49-year-old male who returns for followup status post lumbar epidural steroid injection x 1. The patient reports about 80-90% improvement, still helping in the low back and right lower extremity. The patient reports still some tingling in the right foot, but doing much better, increased activity with greater ease and comfort, doing household activities, walking distances greater, work activities. The patient reports it is not bothering him when he is sitting or lying down. He is sleeping well at night, does not awaken him from sleep. Reports doing much better, very pleased with his progress thus far, reports pain over the past week about a 4 on a scale of 10 at its worst, 2 on average, 0 at its least and is a 2 today. The patient reports it is aching and tingling in the right foot as well as aching in the low back. No new motor or sensory deficits, no new bowel or bladder incontinence or other complaints. PHYSICAL EXAMINATION: VITAL SIGNS: The patient's blood pressure is 146/97, pulse 78, respirations 18, temperature 97.9 degrees Fahrenheit, height is 5 feet 10 inches, weight is 207 pounds. GENERAL: The patient is awake, alert, oriented, appropriate, very pleasant demeanor. HEENT: Shows normocephalic, atraumatic. Extraocular movements are intact and symmetrical. Oral cavity: Mucous membranes moist and pink. Dentition is intact. NECK: Shows anterior throat supple without palpable lymphadenopathy noted. Swallow reflex symmetrical. CHEST: Shows normal on inspection. Breath sounds are clear bilaterally. HEART: Shows S1, S2 clear. No murmurs auscultated. ABDOMEN: Soft, nontender, nondistended. No palpable organomegaly is noted. No rebound or guarding demonstrated. BACK: Shows spine grossly in the midline. Normal appearing thoracic kyphosis, cervical lordotic curvature and lumbar lordotic curvature. Lumbar paraspinous muscle shows symmetrical on inspection, with palpation shows some very mild tenderness in the right low lumbar distribution, but only diffusely without significant radiation. The patient has good rotational motion of lumbar spine laterally as well as extension and flexion without significant increase in pain. EXTREMITIES: Lower extremities show deep tendon reflexes 2+ in the patellar, 1+ tendo-calcaneus tendons. Motor exam is approximately 4 on a scale of 5 with right dorsiflexion, extension 5/5 on the left. Options were discussed with the patient. The patient's old chart was reviewed as his current medication regimen updated. Current review of systems updated today as well. We will proceed with a second in a series of lumbar epidural steroid injection today with fluoroscopic guidance. Risks were again discussed including, but not limited to bleeding, infection, possibility of epidural hematoma, subsequent neurological compromise, dural puncture, headaches, spinal cord and/or nerve damage, side effects of steroid medication and poor results regarding pain control. The patient understands and wished to proceed. The patient will return to clinic in approximately 2 weeks for followup. He was counseled on return appointment, activity level and side effects to be aware of. DIAGNOSIS: Lumbar radiculopathy with lumbar degenerative disk disease. PROCEDURE: Lumbar epidural steroid injection, translaminar approach L5-S1 level using C-arm fluoroscopic guidance under sterile prep and drape using local anesthetic. MEDICATION INJECTED: A total of 120 mg Depo-Medrol plus 10 mL of preservative-free normal saline and 2 mL of contrast. CONDITION AT DISCHARGE: Stable. The patient tolerated procedure well, had no complications. ROBBY TOVAR MD DR: KATHRYN/floyd JOB#: [id number] / [id number]
== END ==
LOC: PNCL 09:51
PROVIDERS: ATTEND Anesthesiology
DX: M51.16 Intervertebral disc disorders with radiculopathy, lumbar region (principal); I10 Essential (primary) hypertension; Z79.899 Other long term (current) drug therapy
CPT/HCPCS: 62323; J1030; J1040; Q9965

== ENCOUNTER → 2019-12-18 | Outpatient (CLI) | payer OTHER ==
--- NOTE | 2019-12-18 14:31 | PDOC ---
Progress Note - Pain Clinic Date of Service: DOS: DATE: 12/18/19 TIME: 14:27 Diagnosis: Dx: Lumbar radiculopathy with lumbar degenerative disc disease History or Present Illness: HPI: 49-year-old male returns follow-up status post lumbar epidural steroid injections x2. Last injection was October 27, 2019. Patient which did very well initially about 80% improved but now about 30% improvement with pain in the low back right lower extremity posterior gluteus posterior thigh posterior calf some numbness in the right foot as well. 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 Patient reports the extended walking with hard soled shoes even with insole inserts has been increasing the pain in the back in the right leg. Patient scribes aching tingling cramping worse with walking standing changing positions better at night generalized not awaken her from sleep. Patient reports no new motor or sensory deficits no new bowel or bladder incontinence or other complaints, rates his pain level at a 6 on a scale of 10 is worse of the past week for an average to its least is a 4 today. Physical Exam: VS: Pressure is 133/85 pulse 57 respiration 16 temperature is 98.6 was Fahrenheit height is 5 feet 10 inches weight is 215 pounds PE: PHYSICAL EXAMINATION: GENERAL: The patient is awake, alert, oriented, appropriate, very pleasant demeanor HEENT: Shows normocephalic, atraumatic. Extraocular movements are intact and symmetrical. Oral cavity: Mucous membranes moist and pink. NECK: Shows anterior throat supple without palpable lymphadenopathy noted. Swallow reflex symmetrical. CHEST: Shows normal on inspection. Breath sounds are clear bilaterally no rales rhonchi wheezes auscultated. HEART: Shows S1, S2 clear. No murmurs auscultated. ABDOMEN: Soft, nontender, nondistended. No palpable organomegaly is noted. No rebound or guarding demonstrated. BACK: Shows spine grossly in the midline. Normal-appearing cervical lordotic curvature. There is slightly increased thoracic kyphosis, some minor flattening of the lumbar lordotic curvature. Lumbar paraspinous muscles show symmetrical on inspection, on palpation shows some moderate tenderness diffusely throughout the upper, middle and lower distribution of the paraspinous muscles bilaterally, but without specific trigger points, without radiation of pain. The patient has good rotational motion of the lumbar spine, both laterally as well as extension and flexion without significant difficulty. No tenderness over the spinous processes, sacrum or sacroiliac regions. EXTREMITIES: Lower extremities show deep tendon reflexes 2+ in the patellar and tendo calcaneus tendons. Motor exam is 4 on a scale of 5 with right dorsiflexion, extension, quadriceps and hamstring flexion and 5/5 on the left. Peripheral pulses are 1+ posterior tibial. No peripheral edema is noted bilaterally. Lower extremities are warm and dry to touch, equal in color and appearance. SKIN: Shows warm and dry, good turgor. No edema. No sores, rashes or bruising throughout. Procedure: Procedure: Options were discussed with the patient. Patient's old chart was reviewed his his current medication regimen updated current review of systems updated today as well. We will proceed with a third in the series lumbar epidural straight injection today with fluoroscopic guidance. Risks were discussed including but not limited to: Bleeding, infection, possibility of epidural hematoma and subsequent neurological compromise, dural puncture, headaches, spinal cord and/or nerve damage, side effects of steroid medication, and poor results regarding pain control. Patient understands wished to proceed. Patient return to clinic in approximately 2 weeks for follow-up, was counseled as to return appointment activity level and side effects to be aware of. Medication Injected: Med Injected: Procedure is lumbar epidural steroid injection under local anesthetic using sterile prep and drape at the L5-S1 level using C-arm fluoroscopic guidance in both AP and lateral views medications injected is 120 mg Depo-Medrol + 10 mL preservative-free normal saline and 2 mL contrast- condition at discharge is stable patient tolerated procedure well had no complications. Condition at Discharge: Condition at Discharge: Condition at discharge stable patient tolerated the procedure well had no complications. ROBBY TOVAR MD Dec 18, 2019 14:31
== END | disposition home or self-care (01) ==
LOC: PNCL 13:17
PROVIDERS: ATTEND Anesthesiology
DX: M51.16 Intervertebral disc disorders with radiculopathy, lumbar region (principal); I10 Essential (primary) hypertension; Z79.899 Other long term (current) drug therapy
CPT/HCPCS: 62323; J1030; J1040; Q9965

== ENCOUNTER → 2020-01-29 | Outpatient (CLI) | payer OTHER ==
[~2020-01-29] MED LIST changes: -IOHEXOL 180 MG/ML 10 ML VIAL. ONE; -methylPREDNISolone ACETATE 40 MG/ML VIAL. ONE; -methylPREDNISolone ACETATE 80 MG/ML VIAL. ONE
[2020-01-29 08:34] LABS: HEMATOCRIT 43.6 % (39.0-53.0); HEMOGLOBIN 15.1 g/dL (13.0-17.5); RED BLOOD COUNT 4.82 x10^6/uL (4.30-5.70); RED CELL DISTRIBUTION WIDTH 12.4 % (11.5-14.5); WHITE BLOOD COUNT 5.4 x10^3/uL (4.0-11.0)
[2020-01-29 08:54] LABS: ALBUMIN 3.8 g/dL (3.4-5.0); ALBUMIN/GLOBULIN RATIO 1.2 (1.0-1.7); GFR 79.8; POTASSIUM 4.2 mmol/L (3.5-5.1); TOTAL BILIRUBIN 1.3 mg/dL (0.2-1.0)
[2020-01-29 08:55] LABS: CHOLESTEROL/HDL RATIO 3.2
[2020-01-29 09:04] LABS: FREE T4 0.87 ng/dL (0.76-1.46); THYROID STIM HORMONE (TSH) 3.076 uIU/mL (0.358-3.74)
[2020-02-02 12:12] LABS: TESTOSTERONE FREE 20.84 ng/dL (5.00-21.00)
== END ==
LOC: LAB 08:04
PROVIDERS: ATTEND Nurse Practitioner Gerontology
DX: Z00.00 Encounter for general adult medical examination without abnormal findings (principal); Z13.220 Encounter for screening for lipoid disorders; Z12.5 Encounter for screening for malignant neoplasm of prostate; R53.83 Other fatigue; I10 Essential (primary) hypertension; R68.82 Decreased libido; R63.5 Abnormal weight gain
CPT/HCPCS: 36415; 80053; 80061; 82306; 82626; 84153; 84402; 84403; 84439; 84443; 85027; G0103